=== PATIENT | male | born 1985 | race Two or more races ===

== ENCOUNTER 2025-02-10 12:00 | Emergency (ER) | payer MEDICAID, OTHER ==
[~2025-02-10] VITALS: Ht 175.3 cm; Wt 72.7 kg
--- NOTE | 2025-02-10 12:08 | ED.PDOC ---
History of Present Illness HPI Comments 39 y/o M, MARY, presents to the ED for CC of headache. EMS reports, patient is coming from [facility] where he c/o a headache. Patient states, he has had a headache with associated vision problems x1day. Patient denies any further symptoms or modifying factors at this time. Time Seen by MD: 12:00 Reviewed Notes: Nurses Notes, Lead Burner Apprentice Notes, Medications, Allergies Allergies: Coded Allergies: NO KNOWN ALLERGIES (Unverified , 02/10/25) Information Source: Patient, Emergency Med Personnel Mode of Arrival: EMS Severity: Moderate Timing: Minutes Duration: Since onset Prehospital treatment: None Past Medical History PAST MEDICAL HISTORY: Unknown Surgical History: Unknown BUSINESS OWNER/ENGINEER History: Unknown Family History Family History: Unknown Social History Smoker: Unknown Alcohol: Unknown Drugs: Unknown Lives In: Homeless Constitutional: denies: chills, diaphoresis, fatigue, fever, malaise, sweats, weakness, others EENTM: denies: blurred vision, double vision, ear bleeding, ear discharge, ear drainage, ear pain, ear ringing, eye pain, eye redness, hearing loss, mouth pain, mouth swelling, nasal discharge, nose bleeding, nose congestion, nose pain, photophobia, tearing, throat pain, throat swelling, voice changes, others Respiratory: denies: cough, hemoptysis, orthopnea, SOB at rest, shortness of breath, SOB with excertion, stridor, wheezing, others Cardiovascular: denies: chest pain, dizzy spells, diaphoresis, Dyspnea on exertion, edema, irregular heart beat, left arm pain, lightheadedness, palpitations, PND, syncope, others Gastrointestinal: denies: abdomen distended, abdominal pain, blood streaked bowels, constipated, diarrhea, dysphagia, difficulty swallowing, hematemesis, melena, nausea, poor appetite, poor fluid intake, rectal bleeding, rectal pain, vomiting, others Genitourinary: denies: abnormal vagina bleeding, burning, dyspareunia, dysuria, flank pain, frequency, hematuria, incontinence, pain, , vagina discharge, urgency, others Neurological: reports: headache; denies: dizziness, fainting, left sided numbness, left sided weakness, numbness, paresthesia, pre-existing deficit, right sided numbness, right sided weakness, seizure, speech problems, tingling, tremors, weakness, others Musculoskeletal: denies: back pain, gout, joint pain, joint swelling, muscle pain, muscle stiffness, neck pain, others Integumetry: denies: bruises, change in color, change in hair/nails, dryness, laceration, lesions, lumps, rash, wounds, others Allergic/Immunocompromised: denies: Difficulty Healing, Frequent Infections, Hives, Itching, others Hematologic/Lymphatic: denies: anemia, blood clots, easy bleeding, easy bruising, swollen glands, others Endocrine: denies: excessive hunger, excessive sweating, excessive thirst, excessive urination, flushing, intolerance to cold, intolerance to heat, unexplained weight gain, unexplained weight loss, others Psychiatric: denies: anxiety, bipolar disorder, depression, hopeless, panic disorder, schizophrenia, sleepless, suicidal, others All Other Systems: Reviewed and Negative Physical Exam General Appearance: Moderate Distress HEENT: Normal ENT Inspection, Pharynx Normal, TMs Normal Neck: Full Range of Motion, Non-Tender, Normal, Normal Inspection Respiratory: Chest Non-Tender, Lungs Clear, No Accessory Muscle Use, No Re spiratory Distress, Normal Breath Sounds Cardiovascular: No Edema, No JVD, No Murmur, No Gallop, Normal Peripheral Pulses, Regular Rate/Rhythm Breast Exam: Deferred Gastrointestinal: No Organomegaly, Non Tender, No Pulsatile Mass, Normal Bowel Sounds, Soft Genitalia: Deferred Pelvic: Deferred Rectal: Deferred Extremities: No calf tenderness, Normal capillary refill, Normal inspection, Normal range of motion, Non-tender, No pedal edema Musculoskeletal : Apperance: Normal Neurologic: Alert, butter grader II-XII nml as Tested, No Motor Deficits, Normal Affect, Normal Mood, No Sensory Deficits Cerebellar Function: Normal Reflexes: Normal Skin: Dry, Normal Color, Warm Peripheral Pulses: 3+ Radial (R), 3+ Radial (L) Lymphatic: No Adenopathy Was a procedure done? Was a procedure done?: No Differential Dx Considerations may include: GENERALIZED HEADACHE, MIGRAINE X-Ray, Labs, Meds, VS Vital Signs Date Time Temp Pulse Resp B/P (MAP) Pulse Ox O2 Delivery O2 Flow Rate FiO2 02/10/25 12:08 98.7 88 16 107/88 100 98.7 Patient alert. Came in because of headache. States that he has suicidal ideation. Vitals stable. No sign of any injuries. Vision intact. Continue monitoring. Time of 1ST Reevaluation: 12:30 Reevaluation 1ST: Unchanged Patient Education/Counseling: Diagnosis, Treatment Family Education/Counseling: No Family Present SEPSIS Sepsis Screen Physician Orders Drug Screen (02/10/25 12:05) Vital Signs Date Time Temp Pulse Resp B/P (MAP) Pulse Ox O2 Delivery O2 Flow Rate FiO2 02/10/25 12:08 98.7 88 16 107/88 100 98.7 Departure 1 Departure Time of Disposition: 12:21 Impression: Primary Impression: Psychosis Qualified Codes: F29 - Unspecified psychosis not due to a substance or known physiological condition Disposition: 30 STILL A PATIENT Condition: Good Discharged With: Self Critical Care Note Critical Care Time?: Yes (90 min-critical care time only) Stability Stability form required: No Heart Score Heart Score: Heart Score Response (Comments) Value History N/A 0 EKG N/A 0 Age N/A 0 Risk Factors N/A 0 Troponin N/A 0 Total 0 I personally scribed for NALLELY SEO MD ([email or web address]) on 02/10/25 at 12:08. Electronically submitted by Anika Devine [email or web address]). NALLELY SEO MD Feb 10, 2025 12:08
[2025-02-10] MEDS: diphenhydrAMINE HCL 50 MG/1 ML VL IM ONE (12:30)
[2025-02-10] MEDS: LORazepam 2MG/ML-1ML VIAL IM ONE (12:30)
[2025-02-10] MEDS: HALOPERIDOL LACTATE 5 MG/ML INJ VIAL IM ONE (12:30)
[2025-02-10 13:15] VITALS: PULSE 79; RESP 22; O2SAT 97
[2025-02-10] MEDS: LORazepam 2MG/ML-1ML VIAL ONE (13:40)
[2025-02-10] MEDS: HALOPERIDOL LACTATE 5 MG/ML INJ VIAL ONE (13:40)
[2025-02-10] MEDS: diphenhydrAMINE HCL 50 MG/1 ML VL ONE (13:40)
[2025-02-10 14:07] LABS: Cannabinoid Screen, Urine Pos (NEGATIVE)
[2025-02-10 14:08] LABS: Amphetamine Screen, Urine Pos (NEGATIVE); Barbiturate Scree,Urine Neg (NEGATIVE); Benzodiazephine Screen, Urine Neg (NEGATIVE); Cocaine Screen, Urine Neg (NEGATIVE); Opiate Scree,Urine Neg (NEGATIVE); Phencyclidine Screen, Urine Neg (NEGATIVE)
--- NOTE | 2025-02-10 17:51 | DVHINCON2 ---
Date of Service if different f: Feb 10, 2025 Consultation ([facility]) Consulting Physician: MARITZA DE OLIVEIRA MD Labs Laboratory Tests Test 02/10/25 13:47 Urine Opiates Screen Neg (NEGATIVE) Urine Fentanyl Screen Neg (NEGATIVE) Urine Barbiturates Screen Neg (NEGATIVE) Urine Phencyclidine Screen Neg (NEGATIVE) Urine Amphetamines Screen Pos (NEGATIVE) Urine Benzodiazepines Screen Neg (NEGATIVE) Urine Cocaine Screen Neg (NEGATIVE) Urine Cannabinoids Screen Pos (NEGATIVE) Appearance: Stated age, Disheveled Psychomotor activity: Calm Behavioral: Uncooperative Eye contact: None Speech: WNL Affect: Blunted, Inappropriate to mood Mood: Euphoric Thought processes: Tangential Thought content: Delusions Suicidal ideations: Present Homicidal ideations: Absent Orientation: Person Intellect: Average Concentration: Poor Attention: Poor Judgement: Limited Insight: Poor Vitals Vital Signs Date Time Temp Pulse Resp B/P (MAP) Pulse Ox O2 Delivery O2 Flow Rate FiO2 02/10/25 13:15 98.2 79 22 102/58 (73) 97 98.2 02/10/25 13:15 Room Air* 0 21 Treatment plan discussed: With staff Medication adjusted: No Labs ordered: No Type: Voluntary Diagnosis: Stimulant induced depressive disorder. Plan : The pt is very somnolent coming off methamphetamine use and not able to give much history, is not engaged in the conversation, making snide remarks with inappropriate smiling all while eyes closed. It would be best to let the pt sleep off the methamphetamine crass and then re- assess for DTS if needed, before discharge. History of Present Illness Reason for Consult : SI. HPI : Pt presented to the facility for headaches with some perceptual disturbances, physical exam unremarkable, pt said he had suicidal thoughts. Pt's tox screen is +ve for amphetamine and cannabis. When approached for interview, the pt was lying in bed wrapped in a sheet with eyes closed. Nurse asked a few times if pt was open to talking to the psychiatrist. Pt said no, then yes, then no and then started answering questions starting with admitting to coming off meth. Pt said he felt suicidal, smiled inappropriately and said "there are lots of ways." He did not specify which way he wanted to do it. He then said he was tired and terminated the interview. Past Psychiatric History : Unknown. Past Medical History : Recent headache. Social History : Unknown. Possibly undomiciled. Assessment/Diagnosis/Plan Reviewed: Care Plan, Labs, Medications MARITZA DE OLIVEIRA MD Feb 10, 2025 17:51
[2025-02-11 01:30] VITALS: BP 121/54; PULSE 81; TEMP 99; O2SAT 94
--- NOTE | 2025-02-11 04:52 | DVHINCON2 ---
Date of Service if different f: Feb 11, 2025 Time of Service: 04:42 Consult Consult Note Psychiatry ED F/u Note: Pt seen today for reassessment, initially presented to ED with SI and UDS + for amphetamine and cannabis but uncooperative with initial psych consultation with Dr Snow Pt now reports "my eyes have been red and blurry for past several days and its making me feel suicidal, i am going to kill myself if no one treats my eyes" Pt c/o unspecified depression and anxiety symptoms but minimally forthcoming/guarded/dismissive and overall uncooperative, poor historian Continues to endorse passive SI with no plan Does not have active outpt MH services established at this time Currently not on any psychotropic agents, unclear prior psych med trials ADELITA hx: 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 children, unemployed, unhoused/homeless, some support system noted (immediate family). Unknown trauma hx FH: Denies FH of psych hospitalizations, suicide attempts, or completed suicides PMH: No hx of seizures/TBI, HIV/hep C, cardiac dz, or recent head injuries, NKDA Some hx of SI/SA resulting in prior psych hospitalizations/5150 holds, unclear last admission. Some history of aggression/ anger outbursts/ mood reactivity. Denies any legal problems. Does not have access to firearms MSE: General Appearance/Behavior: Alert/awake; appears stated age, marginal grooming/hygiene; minimally calm and cooperative, marginal eye contact, some PMA noted Speech: coherent, rrr Thought Process: L/L/bit concrete, poor historian Thought Content: Abnormal Thoughts/Perceptions: denies dissociative symptoms Homicidality / Violent Thoughts: adamantly denies HI Suicidality: + SI Hallucinations: denies AVTH Delusions: denies paranoia, persecutory, or grandiose delusions Obsessions /compulsions: None Judgment/Insight: marginal to poor Mood & Affect: "pissed" with mood-congruent, irritable/guarded Orientation: oriented x 3 Attention/Concentration: appears intact Cognition: grossly intact Assessment: Pt seen today for reassessment, initially presented to ED with SI and UDS + for amphetamine and cannabis but uncooperative with initial psych consultation with Dr Snow Pt c/o unspecified depression and anxiety symptoms but minimally forthcoming/guarded/dismissive and overall uncooperative, poor historian Continues to endorse passive SI with no plan although does not appear genuine in intent Does not have active outpt MH services established at this time Currently not on any psychotropic agents, unclear prior psych med trials Pt medically cleared in ED Acute safety risk remains minimally elevated. Pt seeks inpatient psychiatric admission for further safety, psychiatric stabilization, and possible medication initiation/optimization. Pt willing to transfer to inpt psych facility voluntarily. Consider 5150 hold for DTS ONLY if needed for transfer or if no voluntary beds are available. Pt may also benefit from housing/subst abuse/MH resources during this admission Primary Diagnosis: Mood disorder unspecified. THC / meth use d/o, moderate/severe. R/o SIMD Recommend VOL transfer to inpt psych facility for higher level of care 1:1 sitter is NOT recommended Recommend starting Abilify 10 mg po qd - first dose now Risks/benefits/alternative treatments discussed, informed consent provided by pt If patient later refuses voluntary hospitalization/ requests to be discharged from ED prior to transfer, pt can be safely discharged WITHOUT psych reassessme nt or 5150 evaluation, rather SW consult for housing resources and adequate supply of Abilify 10 mg qd would be appropriate Pt verbalized understanding and is receptive to above tx plan This case was discussed with ED nurse/provider and all parties in agreement with above tx plan Cole Whippel MD Plan discussed with: Patient COLE WHIPPLE MD Feb 11, 2025 04:52
[2025-02-11 07:30] VITALS: RESP 14
== END 2025-02-11 08:45 | disposition home or self-care (01) ==
LOC: EDSEX 12:00 → ER 12:00 → EDBD 12:00 → ER 02-11 08:45
DX: F29 Unspecified psychosis not due to a substance or known physiological condition (principal); Z59.00 Homelessness unspecified; Z79.899 Other long term (current) drug therapy
CPT/HCPCS: 80307; 96372; 99285; J1200; J1630; J2060